=== PATIENT | male | born 1975 | race Caucasian/White ===

== ENCOUNTER → 2021-01-17 | Outpatient (CLI) | payer MEDICARE, OTHER ==
[~2021-01-17] MED LIST: ACET650T61 PO; CIPR-249 PO; CIPR500T3 PO; FLOM0.4C39 PO; HYDR-3713 PO; INSUHUMDS SC; KETO10TAB PO; METF500T13 PO; PEPC1TAB5 PO; REGL5TAB2; TOUJ1.2I SC; TRUL10IN SC; ZOFR4TAB16 PO
== END ==
LOC: M LABSMTC 10:25
PROVIDERS: ATTEND Anesthesiology
DX: Z01.812 Encounter for preprocedural laboratory examination (principal)

== ENCOUNTER 2021-01-22 06:15 | Day surgery (SDC) | payer OTHER ==
[~2021-01-22] VITALS: Ht 177.8 cm; Wt 97.1 kg
[~2021-01-22 06:15] MED LIST changes: -HYDR-3713 PO; +LR 1,000 ML IV ONE
[2021-01-22] MEDS ORDERED: MIDAZOLAM INJ 2MG/2ML VIAL (J2250 PER 1MG) As Ordered ONE (07:01)
[2021-01-22] MEDS ORDERED: HYDROmorphone HCL 2 MG/ML 1ML VIAL (J1170) As Ordered ONE (07:02)
[2021-01-22] MEDS ORDERED: ePHEDrine SULFATE 25 MG/5 ML(5MG/ML) SYRINGE As Ordered ONE (07:02)
[2021-01-22] MEDS ORDERED: PHENYLephrine 500MCG 5ML (100MCG/ML) SYRINGE As Ordered ONE (07:02)
[2021-01-22] MEDS ORDERED: fentaNYL 250 MCG/5 ML INJECTION (J3010) As Ordered ONE (07:02)
[2021-01-22] MEDS ORDERED: ACETAMINOPHEN 1000MG 100ML IV BTL (OFIRMEV) (J0131 PER 10MG) As Ordered ONE (07:02)
[2021-01-22] MEDS ORDERED: LIDOCAINE 2% 100MG/5ML SDV (FOR ANES.) As Ordered ONE (07:03)
[2021-01-22] MEDS ORDERED: SUGAMMADEX SODIUM 500 MG/5 ML VIAL (BRIDION) As Ordered ONE (07:03)
[2021-01-22] MEDS ORDERED: ONDANSETRON 4MG/2ML VIAL As Ordered ONE ×2 (07:03→13:03)
[2021-01-22] MEDS ORDERED: propofoL 200 MG/20 ML VIAL As Ordered ONE (07:03)
[2021-01-22] MEDS ORDERED: dexameTHASONE 4 MG/ML 1ML VIAL (J1100 PER 1MG) As Ordered ONE (07:03)
[2021-01-22] MEDS ORDERED: ROCURONIUM BROMIDE 50 MG/5 ML VIAL As Ordered ONE ×2 (07:03→07:56)
[2021-01-22] MEDS ORDERED: BUPIVACAINE HCL 0.25% 30ML VIAL As Ordered ONE (07:07)
[2021-01-22] MEDS ORDERED: ACETAMINOPHEN TAB 650MG DOSE (2X325MG) PO PRN (13:05)
[2021-01-22] MEDS ORDERED: LR 1,000 ML IV SCH (13:05)
[2021-01-22] MEDS ORDERED: ONDANSETRON 4MG/2ML VIAL IV PRN (13:05)
[2021-01-22] MEDS ORDERED: fentaNYL 100 MCG/2 ML INJECTION (J3010) IV PRN (13:05)
[2021-01-22] MEDS ORDERED: HYDR-3713 PO (13:06)
[2021-01-22] MEDS ORDERED: NORCO, ANEXSIA 5/325MG TABLET (HYDROcodone/ACETAMINOPHEN) PO PRN (13:10)
[2021-01-22] MEDS ORDERED: IBUPROFEN 600MG TAB PO PRN (13:10)
[2021-01-22] MEDS: oxyCODONE 5MG TAB PO PRN ×2 (13:17→13:48)
[2021-01-22 15:20] VITALS: BP 128/71
--- NOTE | 2021-01-22 18:19 | RO ---
OPERATIVE NOTE DATE OF OPERATION: 01/22/2021 PREOPERATIVE DIAGNOSIS: Right lower quadrant incisional hernia. POSTOPERATIVE DIAGNOSIS: Incarcerated right lower quadrant incisional hernia with extensive adhesions. PROCEDURE PERFORMED: Robotic-assisted laparoscopic repair of a right lower quadrant incarcerated incisional hernia with mesh, and extensive lysis of adhesions. SURGEON: Simone Valdez MD REPAIRER SCREEN CRUSHER: SYLVAIN Baeza. Tavia's assistance was essential for management of the robotic instruments as well as exchanges of instruments, passage of sutures, and preparation and insertion of the mesh as well as closure of the skin incisions. ANESTHESIA: General INDICATIONS FOR THE PROCEDURE: The patient is a 45-year-old man who had undergone an open appendectomy approximately 24 years ago. He apparently had a wound infection and subsequently developed an incisional hernia. In about 1998, he underwent an open incisional hernia repair with mesh at another institution. This subsequently recurred. He was seen several years ago for a hernia at this site. He had at that time been recently diagnosed with diabetes and has been working on weight loss and has actually lost approximately 80 lb over the last three years. He now returns for repair of his recurrent incisional hernia. OPERATIVE PROCEDURE: The patient was brought to the operating room and placed on the table in a supine position. He was placed under general endotracheal anesthesia. The patient's abdomen was prepped and draped in a sterile fashion. The patient's hernia clearly did not reduce, consistent with an incarcerated hernia. 1/4% Marcaine was infiltrated at each of the trocar sites as needed. The initial entry was in the left upper quadrant. A Veress needle was inserted and after a positive hanging drop test, the abdomen was insufflated with carbon dioxide gas. An 8 mm robotic port was placed over the scope and advanced through the abdominal wall without difficulty. Initial inspection showed some minimal insufflation of some gas into the small bowel mesentery in a small area. There were extensive adhesions of bowel loops to the anterior abdominal wall in the right lower quadrant overlying the hernia. There were no other significant adhesions in the other quadrants of the abdomen. A second 8 mm port was placed in the epigastric area just left of the falciform ligament and a third port was placed in the left lower quadrant. This was initially an 8 mm port but subsequently this was converted to a 12 in order to allow passage of larger suture needles. The patient was placed into a slight Trendelenburg position. The patient cart of the da Mayur XI robot was brought into position and the endoscope arm was docked to the middle port. The endoscope was inserted and targeting took place on the area of the hernia. The additional robotic arms were docked. A cauterizing scissor and fenestrated bipolar were inserted. I then moved to the control console to proceed with the surgery. Initially an adhesiolysis was performed. There were multiple loops of small bowel overlying the right lower quadrant, anterior and lateral abdominal balbuena. As the loops were peeled away, the extent of the hernia became more apparent. A portion of the cecum and ascending colon were densely adherent up into the hernia. There were also some loops of small bowel that were adherent at the opening of the hernia. As the bowel loops were freed, it was clear that there was a piece of prior prosthetic mesh with some large bluish colored sutures in the anterior abdominal wall in the more inferior portion of the hernia. The current hernia with the entrapped bowel extended superiorly beyond the area of the mesh. Approximately two hours was spent in performing the lysis of adhesions and freeing the bowel. The fascial defect was then measured and was 5 cm superior to inferior and approximately 8 cm medial to lateral in an oval shape. Some attachments between the inner fascia and muscle layer and the more superficial layers of the abdominal wall, where there was more extensive scarring, were divided to free the inner portion of the abdominal wall for a primary closure. A small portion of the mesh which was adherent at the medial anterior aspect was excised just to eliminate this from the wound in this area. This was subsequently removed and discarded. The pressure within the abdomen was then reduced. This was reduced to 10 mmHg. The fascial defect was then closed transversely with #1 Stratafix sutures. One suture was begun laterally and one medially and these were brought together to cross slightly in the middle. While the middle portion of the defect was being closed, the intra-abdominal pressure was actually reduced to 8 mmHg. The abdomen was then reinflated to 10 mmHg. The closure appeared good. A 15 cm round Parietex patch was then selected. This was [employer] Parietex reference code [id number] and lot number [id number]. This was trimmed on two sides to create a 15 cm x 12 cm roughly elliptical mesh. This was inserted into the abdomen and placed over the sutured defect with the long axis of the mesh paralleling the sutured defect. Care was taken to place this with the nonadherent side facing the bowel. The midline of the mesh was then sutured to the underlying fascia with a running suture of 2-0 V-Loc. Additional sutures were placed to complete the suturing of the longitudinal midline and the entire periphery of the mesh and additional sutures were then placed in a chanell pattern connecting the four corners of the mesh and therefore tacking down the free areas in the more central portions of the mesh. This appeared to given an excellent placement of the mesh. The abdomen was inspected and several minor bleeding points on the adhesions were controlled. The 12 mm port was closed by placing a 2-0 Vicryl in the inner layer of the abdominal wall as the trocar was removed and then tying the suture down after the trocar was removed. The remaining instruments were then removed. The robot was undocked and with withdrawn. The abdomen was deflated. Tavia Starkey then proceeded to close the trocar sites with buried sutures of 4-0 Vicryl. Steri-Strips were applied followed by light dressings. The patient tolerated the procedure well without apparent complication. He was awakened in the operating room, extubated and moved to the recovery room in stable condition. MIRNA
== END 2021-01-22 15:20 | disposition home or self-care (01) ==
LOC: M SDC 06:15
PROVIDERS: ATTEND Surgery
DX: K43.2 Incisional hernia without obstruction or gangrene (principal); K66.0 Peritoneal adhesions (postprocedural) (postinfection); E11.9 Type 2 diabetes mellitus without complications; Z79.84 Long term (current) use of oral hypoglycemic drugs; Z79.899 Other long term (current) drug therapy
CPT/HCPCS: 49329; 49655; C1781; J0131; J1100; J1170; J2250; J2370; J2405; J3010; S2900

== ENCOUNTER 2023-02-18 16:24 | Observation (INO) | payer OTHER ==
[~2023-02-18] VITALS: Ht 177.8 cm; Wt 104.8 kg
[~2023-02-18 16:24] MED LIST changes: +HYDR-3713 PO; -LR 1,000 ML IV ONE
[2023-02-18] MEDS ORDERED: SEMA0.257 SQ (16:43)
[2023-02-18] MEDS ORDERED: FLOM0.4C39 PO ×2 (16:43→22:56)
[2023-02-18] MEDS ORDERED: IBUP-359 PO (16:43)
[2023-02-18] MEDS ORDERED: CIPR-249 PO ×2 (16:43→22:56)
[2023-02-18] MEDS ORDERED: OXYC1TAB23 PO ×2 (16:43→22:56)
[2023-02-18 17:50] LABS: BASO % 0.3 % (0.0-1.0); EOS # 0.1 10^3/uL (0.0-0.5); EOS % 0.8 % (0.0-3.0); HEMOGLOBIN 13.8 g/dl (13.5-17.5); LYMPH # 2.2 10^3/uL (1.5-5.0); LYMPH % 18.2 % (24.0-44.0); MEAN CORPUSCULAR HEMOGLOBIN 28.4 pg (27.0-33.0); MEAN CORPUSCULAR HGB CONC 32.9 g/dl (32.0-36.5); MEAN CORPUSCULAR VOLUME 86.4 fl (80.0-96.0); MONO # 1.4 10^3/uL (0.0-0.8); MONO % 11.5 % (2.0-8.0); NEUTROPHILS # 8.1 10^3/uL (1.5-8.5); NEUTROPHILS % 68.8 % (36.0-66.0); PLATELET COUNT, AUTOMATED 247 10^3/uL (150-450); RED BLOOD COUNT 4.86 10^6/uL (4.30-6.10); WHITE BLOOD COUNT 11.8 10^3/uL (4.0-10.0)
[2023-02-18 18:13] LABS: BLOOD UREA NITROGEN 16 MG/DL (9-23); CALCIUM LEVEL 9.3 MG/DL (8.5-10.1); CARBON DIOXIDE LEVEL 26 MMOL/L (20-31); CHLORIDE LEVEL 103 MMOL/L (98-107); CREATININE FOR GFR 1.25 MG/DL (0.70-1.30); GLOMERULAR FILTRATION RATE > 60.0 (>60); GLUCOSE, FASTING 129 MG/DL (60-100); SODIUM LEVEL 139 MMOL/L (136-145)
[2023-02-18] MEDS ORDERED: NS 1,000 ML IV ONE (19:00)
[2023-02-18] MEDS ORDERED: ONDANSETRON 4MG 2ML VIAL IV ONE (19:00)
[2023-02-18] MEDS ORDERED: KETOROLAC 30 MG/ML 1ML VIAL IV ONE (19:00)
[2023-02-18] MEDS ORDERED: SEMA0.257 SC (22:56)
[2023-02-18] MEDS ORDERED: IBUP1TAB7 PO (22:56)
[2023-02-18] MEDS ORDERED: HOME MED LIST COMPLETE! XX SCH (23:00)
[2023-02-18 23:27] VITALS: BP 131/77; TEMP 97.6; O2SAT 99
[2023-02-19] MEDS ORDERED: KETOROLAC 30 MG/ML 1ML VIAL IV PRN
[2023-02-19] MEDS ORDERED: GLUCAGON INJ 1MG VIAL SC PRN
[2023-02-19] MEDS ORDERED: DEXTROSE 50% 50ML SYRINGE IV PRN
[2023-02-19] MEDS ORDERED: GLUCOSE 4GM CHEW TABLET PO PRN
[2023-02-19] MEDS: LR 1,000 ML IV SCH ×2 (00:35→10:07)
[2023-02-19] MEDS: INSULIN LISPRO (NovoLOG) PER UNIT SC SCH ×3 (05:25→12:04)
[2023-02-19 06:00] VITALS: BP 138/77; TEMP 98.2; O2SAT 100
[2023-02-19] MEDS ORDERED: ISOVUE-M 300 61% 15ML VIAL As Ordered ONE (07:18)
[2023-02-19] MEDS ORDERED: LIDOCAINE 2% 5ML JELLY UROJET As Ordered ONE (07:25)
[2023-02-19] MEDS ORDERED: fentaNYL 100 MCG/2 ML INJECTION IV PRN ×2 (07:25→08:30)
[2023-02-19] MEDS ORDERED: ONDANSETRON 4MG 2ML VIAL IV PRN ×3 (07:25→08:30)
[2023-02-19] MEDS ORDERED: HYDROMORPHONE HCL 0.5 MG/ 0.5 ML SYRINGE IV PRN ×3 (07:25→08:30)
[2023-02-19] MEDS ORDERED: MEPERIDINE 25 MG/ML 1ML VIAL IV PRN ×2 (07:25→08:30)
[2023-02-19] MEDS ORDERED: oxyCODONE 5MG TAB PO PRN ×2 (07:25→08:30)
[2023-02-19] MEDS ORDERED: ceFAZolin 2 GM/D5W 50 ML IV BAG As Ordered ONE (07:26)
[2023-02-19] MEDS ORDERED: fentaNYL 100 MCG/2 ML INJECTION As Ordered ONE (07:41)
[2023-02-19] MEDS ORDERED: propofoL 200 MG/20 ML VIAL As Ordered ONE ×2 (07:41→07:48)
[2023-02-19] MEDS ORDERED: MIDAZOLAM INJ 2MG/2ML VIAL As Ordered ONE (07:41)
[2023-02-19] MEDS ORDERED: ACETAMINOPHEN 1000MG 100ML IV BAG As Ordered ONE (07:47)
[2023-02-19] MEDS ORDERED: ceFAZolin SOD 2 GM in IV 1 EA IV ONE (08:00)
[2023-02-19 09:00] LABS: APPEARANCE, URINE TURBID (CLEAR); BACTERIA, URINE AUTO 1+ (NEGATIVE); BILIRUBIN, URINE AUTO NEGATIVE (NEGATIVE); BLOOD, URINE BLOOD 3+ (NEGATIVE); COLOR, URINE AMBER (YELLOW); GLUCOSE, URINE (UA) AUTO NEGATIVE (NEGATIVE); KETONE, URINE AUTO NEGATIVE (NEGATIVE); LEUKOCYTE ESTERASE, URINE AUTO 3+ (NEGATIVE); MUCUS, URINE SMALL (NEGATIVE); NITRITE, URINE AUTO NEGATIVE (NEGATIVE); PROTEIN, URINE AUTO 2+ mg/dL (NEGATIVE); RBC, URINE AUTO 69 /HPF (0-3); SPECIFIC GRAVITY URINE AUTO 1.011 (1.002-1.035); SQUAMOUS EPITHELIAL CELL UR AU 0 /HPF (0-6); UROBILINOGEN, URINE AUTO 0.2 mg/dL (0.0-2.0); WBC, URINE AUTO TNTC /HPF (0-3)
[2023-02-19] MEDS ORDERED: TAMSULOSIN 0.4 MG CAP PO SCH (09:00)
[2023-02-19 09:15] VITALS: BP 134/66; TEMP 97.5; O2SAT 98
[2023-02-19 09:45] VITALS: BP 131/73; TEMP 97.7; O2SAT 99
[2023-02-19 09:56] LABS: BLOOD UREA NITROGEN 17 MG/DL (9-23); CALCIUM LEVEL 8.4 MG/DL (8.5-10.1); CARBON DIOXIDE LEVEL 24 MMOL/L (20-31); CHLORIDE LEVEL 109 MMOL/L (98-107); CREATININE FOR GFR 1.12 MG/DL (0.70-1.30); GLOMERULAR FILTRATION RATE > 60.0 (>60); GLUCOSE, FASTING 144 MG/DL (60-100); POTASSIUM SERUM 4.1 MMOL/L (3.5-5.1); SODIUM LEVEL 141 MMOL/L (136-145)
[2023-02-19] MEDS ORDERED: PROBCAP14 PO (11:32)
[2023-02-19] MEDS ORDERED: CEFD300C41 PO (11:32)
[2023-02-25] MEDS ORDERED: RISATAB3 PO (14:03)
== END 2023-02-19 13:10 | disposition home or self-care (01) ==
LOC: M ED 16:24 → M ED INP 16:25 → ENRESERV 22:48 → M MS4PR 23:02
PROVIDERS: ADMIT Internal Medicine; ATTEND Internal Medicine
DX: N20.1 Calculus of ureter (principal); Q54.9 Hypospadias, unspecified; N35.911 Unspecified urethral stricture, male, meatal; E11.9 Type 2 diabetes mellitus without complications; Z79.84 Long term (current) use of oral hypoglycemic drugs; Z88.5 Allergy status to narcotic agent
CPT/HCPCS: 36415; 52332; 74176; 74420; 80048; 81001; 85025; 87088; 87186; 87635; 96361; 96374; 96375; 99283; C1769; C2617; J0131; J0690; J1885; J2250; J2405; J3010; Q9967

== ENCOUNTER → 2023-02-24 | Outpatient (CLI) | payer OTHER ==
[~2023-02-24] MED LIST changes: +CEFD300C41 PO; +IBUP-359 PO; +IBUP1TAB7 PO; +OXYC1TAB23 PO; +PROBCAP14 PO; +RISATAB3 PO; +SEMA0.257 SC; +SEMA0.257 SQ
[2023-02-24 14:44] LABS: HEMATOCRIT 40.5 % (42.0-52.0); HEMOGLOBIN 13.1 g/dl (13.5-17.5); MEAN CORPUSCULAR HEMOGLOBIN 28.1 pg (27.0-33.0); MEAN CORPUSCULAR HGB CONC 32.3 g/dl (32.0-36.5); MEAN CORPUSCULAR VOLUME 86.7 fl (80.0-96.0); PLATELET COUNT, AUTOMATED 367 10^3/uL (150-450); RED BLOOD COUNT 4.67 10^6/uL (4.30-6.10)
[2023-02-24 15:05] LABS: BLOOD UREA NITROGEN 13 MG/DL (9-23); CALCIUM LEVEL 9.1 MG/DL (8.5-10.1); CARBON DIOXIDE LEVEL 28 MMOL/L (20-31); CHLORIDE LEVEL 106 MMOL/L (98-107); CREATININE FOR GFR 0.89 MG/DL (0.70-1.30); GLOMERULAR FILTRATION RATE > 60.0 (>60); GLUCOSE, FASTING 139 MG/DL (60-100); POTASSIUM SERUM 4.1 MMOL/L (3.5-5.1); SODIUM LEVEL 141 MMOL/L (136-145)
== END ==
LOC: M LAB 14:21
PROVIDERS: ATTEND Urology
DX: Z01.818 Encounter for other preprocedural examination (principal); N20.0 Calculus of kidney

== ENCOUNTER 2023-02-27 10:52 | Day surgery (SDC) | payer OTHER ==
[~2023-02-27] VITALS: Ht 177.8 cm; Wt 105.7 kg
[~2023-02-27 10:52] MED LIST changes: +ceFAZolin SOD 2 GM in IV 1 EA IV ONE
[2023-02-27] MEDS ORDERED: LR 1,000 ML IV SCH ×2 (11:00→14:30)
[2023-02-27] MEDS ORDERED: MIDAZOLAM INJ 2MG/2ML VIAL As Ordered ONE (12:42)
[2023-02-27] MEDS ORDERED: fentaNYL 100 MCG/2 ML INJECTION As Ordered ONE (12:42)
[2023-02-27] MEDS ORDERED: KETOROLAC 60MG 2ML VIAL As Ordered ONE (12:43)
[2023-02-27] MEDS ORDERED: ONDANSETRON 4MG 2ML VIAL As Ordered ONE (12:43)
[2023-02-27] MEDS ORDERED: LIDOCAINE 2% 100MG/5ML SDV (FOR ANES.) As Ordered ONE (12:43)
[2023-02-27] MEDS ORDERED: ISOVUE-300 61% 100ML VIAL As Ordered ONE (13:06)
[2023-02-27] MEDS ORDERED: HYDROMORPHONE HCL 0.5 MG/ 0.5 ML SYRINGE IV PRN (14:30)
[2023-02-27] MEDS ORDERED: fentaNYL 100 MCG/2 ML INJECTION IV PRN (14:30)
[2023-02-27] MEDS ORDERED: ONDANSETRON 4MG 2ML VIAL IV PRN (14:30)
[2023-02-27] MEDS ORDERED: oxyCODONE 5MG TAB PO PRN (14:30)
[2023-02-27 15:28] VITALS: BP 133/85; TEMP 97.9; O2SAT 100
== END 2023-02-27 15:36 | disposition home or self-care (01) ==
LOC: M SDC 10:52
PROVIDERS: ATTEND Urology
DX: N13.2 Hydronephrosis with renal and ureteral calculous obstruction (principal); Z88.5 Allergy status to narcotic agent; E11.9 Type 2 diabetes mellitus without complications; Z79.84 Long term (current) use of oral hypoglycemic drugs; Z79.899 Other long term (current) drug therapy
CPT/HCPCS: 52356; 74420; 82365; C1769; C1894; C2617; J0690; J1100; J1885; J2250; J2405; J3010; Q9967

== ENCOUNTER 2023-08-07 15:29 | Emergency (ER) | payer OTHER ==
[~2023-08-07] VITALS: Ht 175.3 cm; Wt 106.8 kg
[~2023-08-07 15:29] MED LIST changes: +CEFD1CAP9 PO; -CEFD300C41 PO; -ceFAZolin SOD 2 GM in IV 1 EA IV ONE
[2023-08-07 17:27] LABS: BASO % 0.2 % (0.0-1.0); HEMATOCRIT 43.5 % (42.0-52.0); HEMOGLOBIN 14.6 g/dl (13.5-17.5); LYMPH # 0.7 10^3/uL (1.5-5.0); LYMPH % 4.4 % (24.0-44.0); MEAN CORPUSCULAR HEMOGLOBIN 28.1 pg (27.0-33.0); MEAN CORPUSCULAR HGB CONC 33.6 g/dl (32.0-36.5); MEAN CORPUSCULAR VOLUME 83.7 fl (80.0-96.0); MONO # 0.9 10^3/uL (0.0-0.8); MONO % 5.8 % (2.0-8.0); NEUTROPHILS # 13.7 10^3/uL (1.5-8.5); NEUTROPHILS % 88.6 % (36.0-66.0); PLATELET COUNT, AUTOMATED 330 10^3/uL (150-450); WHITE BLOOD COUNT 15.4 10^3/uL (4.0-10.0)
[2023-08-07 17:47] LABS: LIPASE 23 U/L (12-53)
[2023-08-07 18:03] LABS: ALBUMIN 4.4 G/DL (3.2-5.2); ALKALINE PHOSPHATASE 102 U/L (46-116); ALT/SGPT 45 U/L (7.0-40); AST/SGOT 23 U/L (<34); BILIRUBIN,DIRECT 0.4 MG/DL (<0.4); BLOOD UREA NITROGEN 18 MG/DL (9-23); CALCIUM LEVEL 9.4 MG/DL (8.5-10.1); CARBON DIOXIDE LEVEL 23 MMOL/L (20-31); CHLORIDE LEVEL 99 MMOL/L (98-107); CREATININE FOR GFR 1.16 MG/DL (0.70-1.30); GLOMERULAR FILTRATION RATE > 60.0 (>60); GLUCOSE, FASTING 412 MG/DL (60-100); POTASSIUM SERUM 4.6 MMOL/L (3.5-5.1); SODIUM LEVEL 133 MMOL/L (136-145); TOTAL PROTEIN 7.4 G/DL (5.7-8.2)
[2023-08-07 18:34] LABS: VENOUS BASE EXCESS -3.4 (-2.0-2.0); VENOUS O2 SATURATION 68.2 % (60.0-80.0); VENOUS PARTIAL PRESSURE CO2 40.9 mmHg (38.0-50.0); VENOUS PARTIAL PRESSURE O2 32.9 mmHg (30.0-50.0); VENOUS PH 7.349 UNITS (7.330-7.430); VENOUS TOTAL CO2 23.3 MMOL/L (24.0-28.0)
[2023-08-07 18:55] LABS: HEMOGLOBIN A1c 11.2 % (4.0-6.0)
[2023-08-07] MEDS: ONDANSETRON 4MG 2ML VIAL IV ONE (18:58)
[2023-08-07] MEDS: NS 1,000 ML IV ONE (18:59)
[2023-08-07 19:12] LABS: RSV AMPLIFICATION NEGATIVE (NEGATIVE)
[2023-08-07] MEDS ORDERED: HumuLIN R (REGULAR) INSULIN (NovoLIN R) **100U/ML** PER UNIT IV ONE (19:35)
[2023-08-07] MEDS: HumuLIN R (REGULAR) INSULIN (NovoLIN R) **100U/ML** PER UNIT IV ONE (20:13)
[2023-08-07] MEDS: KETOROLAC 30 MG/ML 1ML VIAL IV ONE (20:19)
[2023-08-07] MEDS ORDERED: IBUP80TA PO (20:54)
[2023-08-07] MEDS ORDERED: CIPR-249 PO (20:54)
[2023-08-07] MEDS ORDERED: FLOM0.4C39 PO (20:54)
[2023-08-07 21:11] VITALS: BP 103/55; TEMP 99.2; O2SAT 98
== END 2023-08-07 21:24 | disposition home or self-care (01) ==
LOC: M ED 15:29
DX: U07.1 COVID-19 (principal); N10 Acute pyelonephritis; N20.1 Calculus of ureter; E11.9 Type 2 diabetes mellitus without complications; F10.10 Alcohol abuse, uncomplicated; Z87.442 Personal history of urinary calculi; Z79.84 Long term (current) use of oral hypoglycemic drugs; Z88.5 Allergy status to narcotic agent; Z79.2 Long term (current) use of antibiotics; Z79.1 Long term (current) use of non-steroidal anti-inflammatories (NSAID); Z79.899 Other long term (current) drug therapy
CPT/HCPCS: 74176; 80048; 80076; 81001; 82803; 83036; 83605; 83690; 85025; 87040; 87086; 87631; 96361; 96374; 96375; 99284; J1815; J1885; J2405

== ENCOUNTER → 2023-08-11 | Outpatient (REF) | payer OTHER ==
[~2023-08-11] MED LIST changes: +IBUP80TA PO
== END ==
LOC: M SMT 17:06
PROVIDERS: ATTEND Nurse Practitioner Family
DX: N20.0 Calculus of kidney (principal)

== ENCOUNTER → 2023-08-20 | Outpatient (CLI) | payer OTHER | LOC: M RAD 15:48 | PROVIDERS: ATTEND Nurse Practitioner Family | DX: N20.0 Calculus of kidney (principal) ==

== ENCOUNTER → 2023-09-29 | Outpatient (CLI) | payer BC, SELFPAY ==
[~2023-09-29] MED LIST changes: +METF10004 PO; +TAMS1CAP17 PO
[2023-09-29 12:31] LABS: HEMATOCRIT 42.3 % (42.0-52.0); HEMOGLOBIN 14.3 g/dl (13.5-17.5); MEAN CORPUSCULAR HEMOGLOBIN 28.3 pg (27.0-33.0); MEAN CORPUSCULAR HGB CONC 33.8 g/dl (32.0-36.5); MEAN CORPUSCULAR VOLUME 83.6 fl (80.0-96.0); PLATELET COUNT, AUTOMATED 281 10^3/uL (150-450); RED BLOOD COUNT 5.06 10^6/uL (4.30-6.10); WHITE BLOOD COUNT 6.4 10^3/uL (4.0-10.0)
[2023-09-29 12:40] LABS: APPEARANCE, URINE CLEAR (CLEAR); BACTERIA, URINE AUTO NEGATIVE (NEGATIVE); BILIRUBIN, URINE AUTO NEGATIVE (NEGATIVE); BLOOD, URINE BLOOD NEGATIVE (NEGATIVE); COLOR, URINE STRAW (YELLOW); GLUCOSE, URINE (UA) AUTO 3+ mg/dL (NEGATIVE); KETONE, URINE AUTO TRACE mg/dL (NEGATIVE); LEUKOCYTE ESTERASE, URINE AUTO 1+ (NEGATIVE); NITRITE, URINE AUTO NEGATIVE (NEGATIVE); PROTEIN, URINE AUTO NEGATIVE (NEGATIVE); RBC, URINE AUTO 1 /HPF (0-3); SPECIFIC GRAVITY URINE AUTO 1.021 (1.002-1.035); SQUAMOUS EPITHELIAL CELL UR AU 0 /HPF (0-6); UROBILINOGEN, URINE AUTO 0.2 mg/dL (0.0-2.0); WBC, URINE AUTO 17 /HPF (0-3)
[2023-09-29 13:47] LABS: BLOOD UREA NITROGEN 11 MG/DL (9-23); CARBON DIOXIDE LEVEL 26 MMOL/L (20-31); CHLORIDE LEVEL 100 MMOL/L (98-107); CREATININE FOR GFR 0.65 MG/DL (0.70-1.30); GLOMERULAR FILTRATION RATE > 60.0 (>60); GLUCOSE, FASTING 427 MG/DL (60-100); SODIUM LEVEL 134 MMOL/L (136-145)
== END ==
LOC: M RAD 11:01
PROVIDERS: ATTEND Nurse Practitioner Family
DX: Z01.818 Encounter for other preprocedural examination (principal)

== ENCOUNTER → 2023-10-20 | Outpatient (CLI) | payer BC | LOC: M RAD 16:20 | PROVIDERS: ATTEND Nurse Practitioner Family | DX: N20.0 Calculus of kidney (principal) ==

== ENCOUNTER 2024-03-07 11:07 | Emergency (ER) | payer BC ==
[~2024-03-07] VITALS: Ht 175.3 cm; Wt 98.6 kg
[2024-03-07 11:07] VITALS: BP 162/74; TEMP 98.7; O2SAT 100
[2024-03-07] MEDS ORDERED: SEMA1PEN2 (11:53)
[2024-03-07] MEDS ORDERED: CEFD1CAP9 PO (14:06)
== END 2024-03-07 14:20 | disposition home or self-care (01) ==
LOC: M ED 11:07
DX: N39.0 Urinary tract infection, site not specified (principal); R10.32 Left lower quadrant pain; E11.9 Type 2 diabetes mellitus without complications; Z88.5 Allergy status to narcotic agent; Z87.442 Personal history of urinary calculi; Z90.89 Acquired absence of other organs; Z79.2 Long term (current) use of antibiotics; Z79.4 Long term (current) use of insulin; Z79.899 Other long term (current) drug therapy

== ENCOUNTER 2024-05-17 12:35 | Inpatient (IN) | payer BC ==
[~2024-05-17] VITALS: Ht 175.3 cm; Wt 98.6 kg
[~2024-05-17 12:35] MED LIST changes: +SEMA1PEN2 INJ
[2024-05-17] MEDS ORDERED: IBUP200T46 PO (12:41)
[2024-05-17 13:19] LABS: BASO % 0.2 % (0.0-1.0); EOS % 0.3 % (0.0-3.0); HEMATOCRIT 44.3 % (42.0-52.0); HEMOGLOBIN 14.4 g/dl (13.5-17.5); LYMPH # 2.5 10^3/uL (1.5-5.0); LYMPH % 19.7 % (24.0-44.0); MEAN CORPUSCULAR HEMOGLOBIN 27.8 pg (27.0-33.0); MEAN CORPUSCULAR HGB CONC 32.5 g/dl (32.0-36.5); MEAN CORPUSCULAR VOLUME 85.5 fl (80.0-96.0); MONO # 0.9 10^3/uL (0.0-0.8); MONO % 6.9 % (2.0-8.0); NEUTROPHILS # 9.1 10^3/uL (1.5-8.5); NEUTROPHILS % 72.7 % (36.0-66.0); PLATELET COUNT, AUTOMATED 459 10^3/uL (150-450); RED BLOOD COUNT 5.18 10^6/uL (4.30-6.10); WHITE BLOOD COUNT 12.5 10^3/uL (4.0-10.0)
[2024-05-17] MEDS: KETOROLAC 30 MG/ML 1ML VIAL IV ONE (13:32)
[2024-05-17] MEDS: ONDANSETRON 4MG 2ML VIAL IV ONE ×2 (13:32→17:01)
[2024-05-17 13:53] LABS: ALBUMIN 4.2 G/DL (3.2-5.2); BILIRUBIN,DIRECT 0.2 MG/DL (<0.4); BILIRUBIN,TOTAL 0.6 MG/DL (0.3-1.2); TOTAL PROTEIN 8.1 G/DL (5.7-8.2)
[2024-05-17] MEDS: HYDROMORPHONE HCL 0.5 MG/ 0.5 ML SYRINGE IV PRN (14:41)
[2024-05-17] MEDS: CIPROFLOXACIN 400 MG in IV 1 EA IV ONE (16:11)
[2024-05-17] MEDS ORDERED: HOME MED LIST COMPLETE! XX SCH (16:20)
[2024-05-17] MEDS: NS 1,000 ML IV SCH (16:21)
[2024-05-17] MEDS: ACETAMINOPHEN *IV* 1,000 MG in IV 1 EA IV ONE (17:30)
[2024-05-17] MEDS: METOCLOPRAMIDE INJ 10MG/2ML VIAL IV ONE (17:33)
[2024-05-17] MEDS: SCOPOLAMINE 1MG TRANSDERMAL PATCH TOP SCH (17:42)
[2024-05-17] MEDS ORDERED: GLUCAGON INJ 1MG VIAL SC PRN (17:50)
[2024-05-17] MEDS ORDERED: DEXTROSE 50% 50ML SYRINGE IV PRN (17:50)
[2024-05-17] MEDS: LR 1,000 ML IV SCH (17:50)
[2024-05-17] MEDS ORDERED: HYDROMORPHONE HCL 0.5 MG/ 0.5 ML SYRINGE IV SCH ×2 (17:50)
[2024-05-17] MEDS ORDERED: GLUCOSE 4 GM CHEW PO PRN (17:50)
[2024-05-17] MEDS ORDERED: SCOPOLAMINE 1MG TRANSDERMAL PATCH TOP ONE (17:50)
[2024-05-17] MEDS ORDERED: HYDROMORPHONE HCL 0.5 MG/ 0.5 ML SYRINGE IV PRN (18:30)
[2024-05-17] MEDS: KETOROLAC 30 MG/ML 1ML VIAL IV PRN (19:58)
[2024-05-17] MEDS: INSULIN LISPRO (NovoLOG) PER UNIT SC SCH (21:00)
[2024-05-18] VITALS (9 sets, daily range): BP systolic 96–149; BP diastolic 53–80; TEMP 96.5–98.2; O2SAT 93–99
[2024-05-18] MEDS: ACETAMINOPHEN 500 MG TAB PO SCH (00:20)
[2024-05-18] MEDS: ONDANSETRON 4MG 2ML VIAL IV PRN (00:22)
[2024-05-18] MEDS: KETOROLAC 30 MG/ML 1ML VIAL IV SCH (02:02)
[2024-05-18] MEDS: CIPROFLOXACIN 400 MG in IV 1 EA IV SCH (04:28)
[2024-05-18 06:31] LABS: HEMATOCRIT 38.7 % (42.0-52.0); HEMOGLOBIN 12.5 g/dl (13.5-17.5); MEAN CORPUSCULAR HGB CONC 32.3 g/dl (32.0-36.5); MEAN CORPUSCULAR VOLUME 86.6 fl (80.0-96.0); RED BLOOD COUNT 4.47 10^6/uL (4.30-6.10); WHITE BLOOD COUNT 18.1 10^3/uL (4.0-10.0)
[2024-05-18 06:32] LABS: PLATELET COUNT, AUTOMATED 319 10^3/uL (150-450)
[2024-05-18 06:44] LABS: ALKALINE PHOSPHATASE 64 U/L (40-129); ALT/SGPT 9 U/L (7.0-40); AST/SGOT < 8 U/L (<34); BILIRUBIN,TOTAL 0.8 MG/DL (0.3-1.2); BLOOD UREA NITROGEN 17 MG/DL (9-23); CALCIUM LEVEL 9.1 MG/DL (8.5-10.1); CARBON DIOXIDE LEVEL 26 MMOL/L (20-31); CHLORIDE LEVEL 106 MMOL/L (98-107); CREATININE FOR GFR 1.53 MG/DL (0.70-1.30); GLOMERULAR FILTRATION RATE 52.4 (>60); GLUCOSE, FASTING 164 MG/DL (60-100); POTASSIUM SERUM 4.2 MMOL/L (3.5-5.1); SODIUM LEVEL 140 MMOL/L (136-145); TOTAL PROTEIN 6.2 G/DL (5.7-8.2)
[2024-05-18] MEDS: INSULIN LISPRO (NovoLOG) PER UNIT SC SCH (07:30)
[2024-05-18] MEDS: HYDROMORPHONE HCL 0.5 MG/ 0.5 ML SYRINGE IV PRN (08:40)
[2024-05-18] MEDS: LR 1,000 ML IV SCH (12:34)
[2024-05-18] MEDS ORDERED: fentaNYL 100 MCG/2 ML INJECTION As Ordered ONE (16:09)
[2024-05-18] MEDS ORDERED: ACETAMINOPHEN 1000MG/100ML IV BAG As Ordered ONE (16:09)
[2024-05-18] MEDS ORDERED: propofoL 200 MG/20 ML VIAL As Ordered ONE (16:09)
[2024-05-18] MEDS ORDERED: MIDAZOLAM INJ 2MG/2ML VIAL As Ordered ONE (16:09)
[2024-05-18] MEDS ORDERED: LIDOCAINE 2% 100MG/5ML SDV (FOR ANES.) As Ordered ONE (16:12)
[2024-05-18] MEDS: LIDOCAINE 2% 5ML JELLY UROJET As Ordered ONE (16:35)
[2024-05-18] MEDS: ISOVUE-300 61% 100ML VIAL As Ordered ONE (16:35)
[2024-05-18] MEDS: LR 500 ML IV ONE (22:25)
[2024-05-19] VITALS: BP 113/64; TEMP 96.7; O2SAT 99
[2024-05-19 02:25] VITALS: BP 104/59; TEMP 96.7; O2SAT 96
[2024-05-19 06:44] VITALS: BP 112/69; TEMP 97.2; O2SAT 97
[2024-05-19 07:05] LABS: HEMATOCRIT 32.8 % (42.0-52.0); HEMOGLOBIN 10.7 g/dl (13.5-17.5); MEAN CORPUSCULAR HEMOGLOBIN 27.8 pg (27.0-33.0); MEAN CORPUSCULAR HGB CONC 32.6 g/dl (32.0-36.5); MEAN CORPUSCULAR VOLUME 85.2 fl (80.0-96.0); PLATELET COUNT, AUTOMATED 289 10^3/uL (150-450); RED BLOOD COUNT 3.85 10^6/uL (4.30-6.10)
[2024-05-19 07:32] LABS: BLOOD UREA NITROGEN 22 MG/DL (9-23); CALCIUM LEVEL 8.6 MG/DL (8.5-10.1); CARBON DIOXIDE LEVEL 27 MMOL/L (20-31); CHLORIDE LEVEL 108 MMOL/L (98-107); CREATININE FOR GFR 1.07 MG/DL (0.70-1.30); GLOMERULAR FILTRATION RATE > 60.0 (>60); GLUCOSE, FASTING 254 MG/DL (60-100); POTASSIUM SERUM 4.3 MMOL/L (3.5-5.1); SODIUM LEVEL 140 MMOL/L (136-145)
[2024-05-19] MEDS: ceFAZolin SOD 2 GM in IV 1 EA IV SCH (10:03)
[2024-05-19] MEDS ORDERED: ACETAMINOPHEN 500 MG TAB PO PRN (11:30)
[2024-05-19 12:00] VITALS: BP 129/71; TEMP 97.9; O2SAT 96
[2024-05-19 20:09] VITALS: BP 130/82; TEMP 98.8; O2SAT 98
[2024-05-19] MEDS: MIRALAX *UNIT DOSE* 17GM PACKET PO SCH (20:58)
[2024-05-20 04:20] VITALS: BP 126/81; TEMP 98.1; O2SAT 98
[2024-05-20 06:12] LABS: HEMOGLOBIN 10.8 g/dl (13.5-17.5); MEAN CORPUSCULAR HEMOGLOBIN 27.8 pg (27.0-33.0); MEAN CORPUSCULAR HGB CONC 32.7 g/dl (32.0-36.5); MEAN CORPUSCULAR VOLUME 84.8 fl (80.0-96.0); PLATELET COUNT, AUTOMATED 311 10^3/uL (150-450); RED BLOOD COUNT 3.89 10^6/uL (4.30-6.10); WHITE BLOOD COUNT 12.4 10^3/uL (4.0-10.0)
[2024-05-20 06:40] LABS: BLOOD UREA NITROGEN 15 MG/DL (9-23); CALCIUM LEVEL 8.7 MG/DL (8.5-10.1); CARBON DIOXIDE LEVEL 26 MMOL/L (20-31); CHLORIDE LEVEL 109 MMOL/L (98-107); CREATININE FOR GFR 0.98 MG/DL (0.70-1.30); GLOMERULAR FILTRATION RATE > 60.0 (>60); GLUCOSE, FASTING 145 MG/DL (60-100); POTASSIUM SERUM 3.9 MMOL/L (3.5-5.1); SODIUM LEVEL 143 MMOL/L (136-145)
[2024-05-20] MEDS: ENOXAPARIN 40MG/0.4ML SYRINGE (J1650 PER 10MG) SC SCH (08:24)
[2024-05-20] MEDS ORDERED: CEFD1CAP9 PO (11:17)
== END 2024-05-20 12:35 | disposition home or self-care (01) | DRG 465 ==
LOC: M ED 12:35 → M ED INP 12:36 → M MS5PR 05-18 00:52 → OBSVTOIN 05-19 15:19
PROVIDERS: ADMIT Student in an Organized Health Care Education/Training Program; ATTEND Student in an Organized Health Care Education/Training Program
PROC: 0T778DZ Dilation of Left Ureter with Intraluminal Device, Via Natural or Artificial Opening Endoscopic (ICD-10-PCS; principal; 2024-05-18 16:00)
DX: N13.2 Hydronephrosis with renal and ureteral calculous obstruction (principal); N17.9 Acute kidney failure, unspecified; R78.81 Bacteremia; E11.9 Type 2 diabetes mellitus without complications; N39.0 Urinary tract infection, site not specified; Q54.8 Other hypospadias; Z88.5 Allergy status to narcotic agent; Z79.899 Other long term (current) drug therapy

== ENCOUNTER → 2024-07-01 | Outpatient (CLI) | payer BC ==
[~2024-07-01] MED LIST changes: +IBUP200T46 PO
[2024-07-01 18:01] LABS: HEMATOCRIT 42.7 % (42.0-52.0); HEMOGLOBIN 14.2 g/dl (13.5-17.5); MEAN CORPUSCULAR HGB CONC 33.3 g/dl (32.0-36.5); MEAN CORPUSCULAR VOLUME 84.1 fl (80.0-96.0); PLATELET COUNT, AUTOMATED 336 10^3/uL (150-450); RED BLOOD COUNT 5.08 10^6/uL (4.30-6.10); WHITE BLOOD COUNT 8.2 10^3/uL (4.0-10.0)
[2024-07-01 18:20] LABS: BLOOD UREA NITROGEN 13 MG/DL (9-23); CALCIUM LEVEL 9.7 MG/DL (8.5-10.1); CARBON DIOXIDE LEVEL 28 MMOL/L (20-31); CHLORIDE LEVEL 111 MMOL/L (98-107); CREATININE FOR GFR 0.77 MG/DL (0.70-1.30); GLOMERULAR FILTRATION RATE > 60.0 (>60); GLUCOSE, FASTING 119 MG/DL (60-100); POTASSIUM SERUM 4.1 MMOL/L (3.5-5.1); SODIUM LEVEL 143 MMOL/L (136-145)
== END ==
LOC: M RAD 16:41
PROVIDERS: ATTEND Physician Assistant
DX: Z01.818 Encounter for other preprocedural examination (principal)

== ENCOUNTER → 2024-07-11 | Outpatient (REF) | payer BC ==
[2024-07-11 11:56] LABS: AMORPHOUS SEDIMENT SMALL (NEGATIVE); APPEARANCE, URINE CLOUDY (CLEAR); BACTERIA, URINE AUTO 1+ (NEGATIVE); BILIRUBIN, URINE AUTO NEGATIVE (NEGATIVE); BLOOD, URINE BLOOD 1+ (NEGATIVE); COLOR, URINE YELLOW (YELLOW); GLUCOSE, URINE (UA) AUTO NEGATIVE (NEGATIVE); KETONE, URINE AUTO NEGATIVE (NEGATIVE); LEUKOCYTE ESTERASE, URINE AUTO 3+ (NEGATIVE); MUCUS, URINE SMALL (NEGATIVE); NITRITE, URINE AUTO NEGATIVE (NEGATIVE); PROTEIN, URINE AUTO 1+ mg/dL (NEGATIVE); RBC, URINE AUTO 5 /HPF (0-3); SPECIFIC GRAVITY URINE AUTO 1.011 (1.002-1.035); SQUAMOUS EPITHELIAL CELL UR AU 1 /HPF (0-6); UROBILINOGEN, URINE AUTO 0.2 mg/dL (0.0-2.0); WBC, URINE AUTO 135 /HPF (0-3)
== END ==
LOC: M SMT 11:11
PROVIDERS: ATTEND Physician Assistant
DX: Z01.818 Encounter for other preprocedural examination (principal)

== ENCOUNTER 2024-07-21 10:21 | Day surgery (SDC) | payer BC ==
[~2024-07-21] VITALS: Ht 175.3 cm; Wt 98.4 kg
[2024-07-21] MEDS ORDERED: LR 1,000 ML IV SCH (10:55)
[2024-07-21] MEDS ORDERED: LIDOCAINE 2% 100MG/5ML SDV (FOR ANES.) As Ordered ONE (12:46)
[2024-07-21] MEDS ORDERED: propofoL 200 MG/20 ML VIAL As Ordered ONE (12:46)
[2024-07-21] MEDS ORDERED: fentaNYL 100 MCG/2 ML INJECTION As Ordered ONE (12:49)
[2024-07-21] MEDS ORDERED: MIDAZOLAM INJ 2MG/2ML VIAL As Ordered ONE (12:49)
[2024-07-21] MEDS: ceFAZolin SOD 2 GM in IV 1 EA IV ONE (13:03)
[2024-07-21] MEDS: ISOVUE-300 61% 100ML VIAL As Ordered ONE (13:28)
[2024-07-21] MEDS ORDERED: KETOROLAC 60MG 2ML VIAL As Ordered ONE (13:31)
[2024-07-21] MEDS ORDERED: ONDANSETRON 4MG 2ML VIAL As Ordered ONE (13:32)
[2024-07-21] MEDS ORDERED: NS (Normal Saline) 0.9% 1,000 ML IV SCH (14:05)
[2024-07-21] MEDS ORDERED: oxyCODONE 5MG TAB PO PRN (14:05)
[2024-07-21] MEDS ORDERED: MACR100C43 PO (14:05)
[2024-07-21] MEDS ORDERED: OXYB5TAB14 PO (14:05)
[2024-07-21] MEDS ORDERED: PYRI1TAB5 PO (14:05)
[2024-07-21] MEDS ORDERED: HYDROMORPHONE HCL 0.5 MG/ 0.5 ML SYRINGE IV PRN (14:05)
[2024-07-21] MEDS ORDERED: fentaNYL 100 MCG/2 ML INJECTION IV PRN (14:05)
[2024-07-21] MEDS: ONDANSETRON 4MG 2ML VIAL IV PRN (14:24)
[2024-07-21 15:10] VITALS: BP 141/78; TEMP 97.9; O2SAT 99
== END 2024-07-21 15:23 | disposition home or self-care (01) ==
LOC: M SDC 10:21
PROVIDERS: ATTEND Urology
DX: N20.2 Calculus of kidney with calculus of ureter (principal); E11.9 Type 2 diabetes mellitus without complications; Z79.84 Long term (current) use of oral hypoglycemic drugs; Z79.899 Other long term (current) drug therapy; Z88.5 Allergy status to narcotic agent
CPT/HCPCS: 52356; 76000; 82365; C1769; C2617; J0690; J1100; J1885; J2250; J2405; J3010; Q9967

== ENCOUNTER 2024-09-11 17:10 | Inpatient (IN) | payer BC ==
[~2024-09-11] VITALS: Ht 175.3 cm; Wt 98.6 kg
[~2024-09-11 17:10] MED LIST changes: +MACR100C43 PO; +OXYB5TAB14 PO; +PYRI1TAB5 PO
[2024-09-11] MEDS: KETOROLAC 30 MG/ML 1ML VIAL IV ONE (17:48)
[2024-09-11] MEDS: ONDANSETRON 4MG 2ML VIAL IV ONE (17:48)
[2024-09-11 18:16] LABS: BASO % 0.3 % (0.0-1.0); EOS # 0.1 10^3/uL (0.0-0.5); HEMATOCRIT 38.8 % (42.0-52.0); HEMOGLOBIN 12.9 g/dl (13.5-17.5); LYMPH # 1.1 10^3/uL (1.5-5.0); LYMPH % 10.9 % (24.0-44.0); MEAN CORPUSCULAR HEMOGLOBIN 27.3 pg (27.0-33.0); MEAN CORPUSCULAR HGB CONC 33.2 g/dl (32.0-36.5); MEAN CORPUSCULAR VOLUME 82.2 fl (80.0-96.0); MONO # 0.8 10^3/uL (0.0-0.8); MONO % 8.3 % (2.0-8.0); NEUTROPHILS # 7.6 10^3/uL (1.5-8.5); PLATELET COUNT, AUTOMATED 355 10^3/uL (150-450); RED BLOOD COUNT 4.72 10^6/uL (4.30-6.10); WHITE BLOOD COUNT 9.7 10^3/uL (4.0-10.0)
[2024-09-11 18:24] LABS: KETONE, URINE AUTO RFX 1+ mg/dL (NEGATIVE); LEUKOCYTE ESTERASE UR AUTO RFX 3+ (NEGATIVE); MUCUS, URINE RFX SMALL (NEGATIVE); NITRITE, URINE AUTO RFX NEGATIVE (NEGATIVE); RBC, URINE AUTO RFX 61 /HPF (0-3); SQUAM EPITHELIAL CELL UR AURFX 1 /HPF (0-6); WBC, URINE AUTO RFX TNTC /HPF (0-3)
[2024-09-11 18:45] LABS: ALBUMIN 3.6 G/DL (3.2-5.2); BILIRUBIN,DIRECT 0.3 MG/DL (<0.4); BILIRUBIN,TOTAL 0.8 MG/DL (0.3-1.2); TOTAL PROTEIN 6.9 G/DL (5.7-8.2)
[2024-09-11] MEDS: VANCOMYCIN HCL 1,000 MG, VIAL MATE ADAPTER 1 EACH in NS 250 ML IV ONE (23:16)
[2024-09-11] MEDS: NS (Normal Saline) 0.9% 1,000 ML IV ONE (23:50)
[2024-09-12] VITALS (12 sets, daily range): BP systolic 92–124; BP diastolic 54–67; TEMP 97.1–99.9; O2SAT 97–100
[2024-09-12] MEDS: GENTAMICIN 240 MG in D5W 50 ML IV ONE
[2024-09-12] MEDS ORDERED: ACETAMINOPHEN 325 MG TAB PO PRN (00:50)
[2024-09-12] MEDS ORDERED: GLUCAGON INJ 1MG VIAL SC PRN (00:50)
[2024-09-12] MEDS ORDERED: MAALOX 30 ML SUSP *UDC PO PRN (00:50)
[2024-09-12] MEDS ORDERED: ONDANSETRON 4MG ORAL DISINTEGRATING TAB PO PRN (00:50)
[2024-09-12] MEDS ORDERED: GLUCOSE 4 GM CHEW PO PRN (00:50)
[2024-09-12] MEDS ORDERED: DEXTROSE 50% 50ML SYRINGE IV PRN (00:50)
[2024-09-12] MEDS ORDERED: MOM 30ML SUSPENSION UDC PO PRN (00:50)
[2024-09-12] MEDS ORDERED: GENTAMICIN SULF 80MG/2ML VIAL As Ordered ONE (00:52)
[2024-09-12] MEDS ORDERED: ISOVUE-300 61% 100ML VIAL As Ordered ONE (01:01)
[2024-09-12] MEDS ORDERED: fentaNYL 100 MCG/2 ML INJECTION As Ordered ONE (01:21)
[2024-09-12] MEDS ORDERED: ACETAMINOPHEN 1000MG/100ML IV BAG As Ordered ONE (01:21)
[2024-09-12] MEDS ORDERED: ONDANSETRON 4MG 2ML VIAL As Ordered ONE (01:21)
[2024-09-12] MEDS ORDERED: LIDOCAINE 2% 100MG/5ML SDV (FOR ANES.) As Ordered ONE (01:21)
[2024-09-12] MEDS ORDERED: ROCURONIUM BROMIDE 50MG/5ML VIAL As Ordered ONE (01:21)
[2024-09-12] MEDS ORDERED: MIDAZOLAM INJ 2MG/2ML VIAL As Ordered ONE (01:21)
[2024-09-12] MEDS ORDERED: SUCCINYLCHOLINE 100MG/5ML SYRINGE As Ordered ONE (01:21)
[2024-09-12] MEDS ORDERED: METOCLOPRAMIDE INJ 10MG/2ML VIAL As Ordered ONE (01:21)
[2024-09-12] MEDS ORDERED: propofoL 200 MG/20 ML VIAL As Ordered ONE (01:21)
[2024-09-12] MEDS: INSULIN LISPRO (NovoLOG) PER UNIT SC SCH ×2 (09:32→20:06)
[2024-09-12] MEDS: cefTRIAXone SOD 2 GM in DEXTROSE 5% (D5W) ADV/MINI-BAG 50 ML IV SCH (09:33)
[2024-09-12] MEDS: DOCUSATE SODIUM 100MG CAPSULE PO SCH (09:33)
[2024-09-12] MEDS ORDERED: HOME MED LIST COMPLETE! XX SCH (10:05)
[2024-09-12 12:11] LABS: HEMATOCRIT 38.6 % (42.0-52.0); HEMOGLOBIN 12.1 g/dl (13.5-17.5); MEAN CORPUSCULAR HEMOGLOBIN 26.8 pg (27.0-33.0); MEAN CORPUSCULAR HGB CONC 31.3 g/dl (32.0-36.5); MEAN CORPUSCULAR VOLUME 85.6 fl (80.0-96.0); PLATELET COUNT, AUTOMATED 316 10^3/uL (150-450); RED BLOOD COUNT 4.51 10^6/uL (4.30-6.10); WHITE BLOOD COUNT 9.5 10^3/uL (4.0-10.0)
[2024-09-12 12:33] LABS: BLOOD UREA NITROGEN 14 MG/DL (9-23); CALCIUM LEVEL 8.4 MG/DL (8.5-10.1); CARBON DIOXIDE LEVEL 26 MMOL/L (20-31); CHLORIDE LEVEL 109 MMOL/L (98-107); CREATININE FOR GFR 0.95 MG/DL (0.70-1.30); GLOMERULAR FILTRATION RATE > 60.0 (>60); GLUCOSE, FASTING 146 MG/DL (60-100); POTASSIUM SERUM 3.8 MMOL/L (3.5-5.1); SODIUM LEVEL 143 MMOL/L (136-145)
[2024-09-13 01:03] VITALS: TEMP 98.4
[2024-09-13 04:04] VITALS: BP 102/54; TEMP 97.5; O2SAT 96
[2024-09-13 08:00] VITALS: BP 118/74; TEMP 97.5; O2SAT 98
[2024-09-13] MEDS ORDERED: CEFD1CAP9 PO (10:30)
== END 2024-09-13 12:59 | disposition home or self-care (01) | DRG 465 ==
LOC: M ED 17:10 → M ED INP 23:56 → M MS4PR 09-12 02:16
PROVIDERS: ADMIT Student in an Organized Health Care Education/Training Program; ATTEND Student in an Organized Health Care Education/Training Program
PROC: 0T778DZ Dilation of Left Ureter with Intraluminal Device, Via Natural or Artificial Opening Endoscopic (ICD-10-PCS; principal; 2024-09-12)
DX: N13.2 Hydronephrosis with renal and ureteral calculous obstruction (principal); N39.0 Urinary tract infection, site not specified; E11.9 Type 2 diabetes mellitus without complications; E66.9 Obesity, unspecified; Q54.8 Other hypospadias; Z88.5 Allergy status to narcotic agent; Z79.899 Other long term (current) drug therapy

== ENCOUNTER 2024-10-02 13:13 | Inpatient (IN) | payer BC ==
[~2024-10-02] VITALS: Ht 175.3 cm; Wt 98.6 kg
[2024-10-02] MEDS: cefTRIAXone SOD 1 GM in DEXTROSE 5% (D5W) ADV/MINI-BAG 50 ML IV ONE (14:27)
[2024-10-02] MEDS: NS (Normal Saline) 0.9% 1,000 ML IV ONE (14:27)
[2024-10-02 14:30] LABS: BASO % 0.2 % (0.0-1.0); HEMATOCRIT 37.7 % (42.0-52.0); HEMOGLOBIN 12.6 g/dl (13.5-17.5); LYMPH # 1.1 10^3/uL (1.5-5.0); LYMPH % 8.6 % (24.0-44.0); MEAN CORPUSCULAR HEMOGLOBIN 26.9 pg (27.0-33.0); MEAN CORPUSCULAR HGB CONC 33.4 g/dl (32.0-36.5); MEAN CORPUSCULAR VOLUME 80.4 fl (80.0-96.0); MONO % 7.8 % (2.0-8.0); NEUTROPHILS # 10.7 10^3/uL (1.5-8.5); NEUTROPHILS % 82.9 % (36.0-66.0); PLATELET COUNT, AUTOMATED 219 10^3/uL (150-450); RED BLOOD COUNT 4.69 10^6/uL (4.30-6.10); WHITE BLOOD COUNT 12.9 10^3/uL (4.0-10.0)
[2024-10-02] MEDS: ONDANSETRON 4MG 2ML VIAL IV ONE (14:31)
[2024-10-02 14:51] LABS: KETONE, URINE AUTO RFX 2+ mg/dL (NEGATIVE); MUCUS, URINE RFX SMALL (NEGATIVE); NITRITE, URINE AUTO RFX NEGATIVE (NEGATIVE); RBC, URINE AUTO RFX 15 /HPF (0-3); SQUAM EPITHELIAL CELL UR AURFX 1 /HPF (0-6); TRANSITIONAL EPITHELIAL AU RFX 1 /HPF
[2024-10-02 15:06] LABS: LEUKOCYTE ESTERASE UR AUTO RFX 3+ (NEGATIVE); WBC, URINE AUTO RFX TNTC /HPF (0-3)
[2024-10-02 15:08] LABS: ALBUMIN 3.4 G/DL (3.2-5.2); ALKALINE PHOSPHATASE 70 U/L (40-129); ALT/SGPT 16 U/L (7.0-40); AST/SGOT 19 U/L (<34); BILIRUBIN,DIRECT 0.3 MG/DL (<0.4); BILIRUBIN,TOTAL 0.8 MG/DL (0.3-1.2); BLOOD UREA NITROGEN 18 MG/DL (9-23); CALCIUM LEVEL 8.5 MG/DL (8.5-10.1); CARBON DIOXIDE LEVEL 22 MMOL/L (20-31); CHLORIDE LEVEL 99 MMOL/L (98-107); GLOMERULAR FILTRATION RATE > 90.0 (>60); GLUCOSE, FASTING 202 MG/DL (60-100); POTASSIUM SERUM 3.4 MMOL/L (3.5-5.1); SODIUM LEVEL 133 MMOL/L (136-145)
[2024-10-02] MEDS: KETOROLAC 30 MG/ML 1ML VIAL IV ONE (17:33)
[2024-10-02] MEDS ORDERED: ISOVUE-370 76% 100ML VIAL As Ordered ONE (17:39)
[2024-10-02] MEDS: NS 0.9% IV ONE (17:52)
[2024-10-02] MEDS: PROMETHAZINE 25MG/ML 1ML VIAL IV ONE (17:52)
[2024-10-02] MEDS: [UNRECOGNIZED DRUG - OTHER] IV ONE (17:52)
[2024-10-02] MEDS ORDERED: GLUCOSE 4 GM CHEW PO PRN (18:15)
[2024-10-02] MEDS ORDERED: GLUCAGON INJ 1MG VIAL SC PRN (18:15)
[2024-10-02] MEDS ORDERED: VANCOMYCIN HCL 1,000 MG in IV FLUID PLACE HOLDER 1 EA IV ONE (18:15)
[2024-10-02] MEDS ORDERED: DEXTROSE 50% 50ML SYRINGE IV PRN (18:15)
[2024-10-02] MEDS ORDERED: HYDROMORPHONE HCL 0.5 MG/ 0.5 ML SYRINGE IV PRN (18:30)
[2024-10-02 18:45] LABS: PROCALCITONIN 6.38 ng/ml
[2024-10-02] MEDS: VANCOMYCIN HCL 2,000 MG, VIAL MATE ADAPTER 1 EACH in NS 500 ML IV ONE (18:52)
[2024-10-02 19:03] LABS: C REACTIVE PROTEIN QUANTITATIV 27.53 MG/DL (<1.0)
[2024-10-02] MEDS: KCL 10MEQ/100ML SWI (KRUN) 10 MEQ in IV 1 EA IV SCH (19:57)
[2024-10-02] MEDS: ACETAMINOPHEN 325 MG TAB PO PRN (19:58)
[2024-10-02] MEDS: INSULIN LISPRO (NovoLOG) PER UNIT SC SCH (21:00)
[2024-10-02 21:19] VITALS: BP 108/57; TEMP 99.1; O2SAT 96
[2024-10-02] MEDS: CEFEPIME HCL 2 GM in DEXTROSE 5% (D5W) ADV/MINI-BAG 50 ML IV SCH (22:27)
[2024-10-02] MEDS ORDERED: ACET-897 PO (22:46)
[2024-10-02] MEDS ORDERED: HOME MED LIST COMPLETE! XX SCH (22:50)
[2024-10-03] VITALS (8 sets, daily range): BP systolic 106–170; BP diastolic 57–100; TEMP 98.6–102.1; O2SAT 94–99
[2024-10-03] MEDS: ONDANSETRON 4MG 2ML VIAL IV PRN (02:43)
[2024-10-03] MEDS: HYDROMORPHONE HCL 0.5 MG/ 0.5 ML SYRINGE IV PRN (02:44)
[2024-10-03] MEDS: ACETAMINOPHEN *IV* 1,000 MG in IV 1 EA IV ONE (02:45)
[2024-10-03] MEDS: VANCOMYCIN HCL 1,000 MG, VIAL MATE ADAPTER 1 EACH in NS 250 ML IV SCH (04:12)
[2024-10-03 06:11] LABS: HEMATOCRIT 32.2 % (42.0-52.0); MEAN CORPUSCULAR HGB CONC 32.6 g/dl (32.0-36.5); MEAN CORPUSCULAR VOLUME 82.8 fl (80.0-96.0); PLATELET COUNT, AUTOMATED 179 10^3/uL (150-450); RED BLOOD COUNT 3.89 10^6/uL (4.30-6.10); WHITE BLOOD COUNT 8.6 10^3/uL (4.0-10.0)
[2024-10-03 06:13] LABS: HEMOGLOBIN 10.5 g/dl (13.5-17.5)
[2024-10-03 06:23] LABS: BLOOD UREA NITROGEN 16 MG/DL (9-23); CALCIUM LEVEL 7.8 MG/DL (8.5-10.1); CARBON DIOXIDE LEVEL 23 MMOL/L (20-31); CHLORIDE LEVEL 105 MMOL/L (98-107); CREATININE FOR GFR 0.91 MG/DL (0.70-1.30); GLOMERULAR FILTRATION RATE > 90.0 (>60); GLUCOSE, FASTING 160 MG/DL (60-100); POTASSIUM SERUM 3.6 MMOL/L (3.5-5.1); SODIUM LEVEL 139 MMOL/L (136-145)
[2024-10-03] MEDS: INSULIN LISPRO (NovoLOG) PER UNIT SC SCH (08:12)
[2024-10-04 05:22] VITALS: BP 99/68; TEMP 98.1; O2SAT 97
[2024-10-04 05:51] LABS: BASO % 0.4 % (0.0-1.0); EOS # 0.1 10^3/uL (0.0-0.5); EOS % 1.5 % (0.0-3.0); HEMATOCRIT 33.4 % (42.0-52.0); HEMOGLOBIN 10.8 g/dl (13.5-17.5); LYMPH # 1.5 10^3/uL (1.5-5.0); LYMPH % 20.7 % (24.0-44.0); MEAN CORPUSCULAR HEMOGLOBIN 26.8 pg (27.0-33.0); MEAN CORPUSCULAR HGB CONC 32.3 g/dl (32.0-36.5); MEAN CORPUSCULAR VOLUME 82.9 fl (80.0-96.0); MONO % 13.1 % (2.0-8.0); NEUTROPHILS # 4.6 10^3/uL (1.5-8.5); NEUTROPHILS % 63.9 % (36.0-66.0); PLATELET COUNT, AUTOMATED 192 10^3/uL (150-450); RED BLOOD COUNT 4.03 10^6/uL (4.30-6.10); WHITE BLOOD COUNT 7.2 10^3/uL (4.0-10.0)
[2024-10-04 06:14] LABS: BLOOD UREA NITROGEN 10 MG/DL (9-23); CALCIUM LEVEL 8.4 MG/DL (8.5-10.1); CARBON DIOXIDE LEVEL 24 MMOL/L (20-31); CHLORIDE LEVEL 108 MMOL/L (98-107); CREATININE FOR GFR 0.74 MG/DL (0.70-1.30); GLOMERULAR FILTRATION RATE > 90.0 (>60); GLUCOSE, FASTING 154 MG/DL (60-100); POTASSIUM SERUM 3.5 MMOL/L (3.5-5.1); SODIUM LEVEL 143 MMOL/L (136-145)
[2024-10-04 06:28] LABS: C REACTIVE PROTEIN QUANTITATIV 17.82 MG/DL (<1.0)
[2024-10-04] MEDS ORDERED: LEVO1TAB40 PO (10:13)
[2024-10-04 12:00] VITALS: BP 112/68; TEMP 97.8; O2SAT 97
== END 2024-10-04 13:45 | disposition home or self-care (01) | DRG 720 ==
LOC: M ED 13:13 → M ED INP 18:14 → M MS5PR 21:07
PROVIDERS: ADMIT Internal Medicine; ATTEND Student in an Organized Health Care Education/Training Program
DX: A41.9 Sepsis, unspecified organism (principal); E87.1 Hypo-osmolality and hyponatremia; N10 Acute pyelonephritis; N39.0 Urinary tract infection, site not specified; E87.6 Hypokalemia; E11.9 Type 2 diabetes mellitus without complications; Q54.8 Other hypospadias; N20.0 Calculus of kidney; N35.911 Unspecified urethral stricture, male, meatal; Z79.899 Other long term (current) drug therapy; Z88.5 Allergy status to narcotic agent; B95.8 Unspecified staphylococcus as the cause of diseases classified elsewhere

== ENCOUNTER → 2024-10-31 | Outpatient (CLI) | payer BC ==
[~2024-10-31] MED LIST changes: +ACET-897 PO; -FLOM0.4C39 PO; +LEVO1TAB40 PO; +TAMS-18 PO
[2024-10-31 17:39] LABS: HEMATOCRIT 41.1 % (42.0-52.0); HEMOGLOBIN 13.2 g/dl (13.5-17.5); MEAN CORPUSCULAR HEMOGLOBIN 27.3 pg (27.0-33.0); MEAN CORPUSCULAR HGB CONC 32.1 g/dl (32.0-36.5); MEAN CORPUSCULAR VOLUME 85.1 fl (80.0-96.0); PLATELET COUNT, AUTOMATED 313 10^3/uL (150-450); RED BLOOD COUNT 4.83 10^6/uL (4.30-6.10); WHITE BLOOD COUNT 7.1 10^3/uL (4.0-10.0)
[2024-10-31 18:17] LABS: ALBUMIN 3.9 G/DL (3.2-5.2); ALKALINE PHOSPHATASE 104 U/L (40-129); ALT/SGPT 18 U/L (7.0-40); AST/SGOT 13 U/L (<34); BILIRUBIN,TOTAL 0.3 MG/DL (0.3-1.2); BLOOD UREA NITROGEN 17 MG/DL (9-23); CALCIUM LEVEL 9.5 MG/DL (8.5-10.1); CARBON DIOXIDE LEVEL 28 MMOL/L (20-31); CHLORIDE LEVEL 107 MMOL/L (98-107); GLOMERULAR FILTRATION RATE > 90.0 (>60); GLUCOSE, FASTING 142 MG/DL (60-100); SODIUM LEVEL 144 MMOL/L (136-145); TOTAL PROTEIN 7.5 G/DL (5.7-8.2)
== END ==
LOC: M LAB 16:37
PROVIDERS: ATTEND Urology
DX: N20.1 Calculus of ureter (principal)

== ENCOUNTER 2024-12-26 11:37 | Emergency (ER) | payer BC ==
[~2024-12-26] VITALS: Ht 175.3 cm; Wt 108.0 kg
[2024-12-26] MEDS ORDERED: CEPH500C (11:46)
[2024-12-26 12:54] LABS: BASO # 0.1 10^3/uL (0.0-0.2); BASO % 0.6 % (0.0-1.0); EOS # 0.1 10^3/uL (0.0-0.5); EOS % 1.6 % (0.0-3.0); LYMPH # 2.6 10^3/uL (1.5-5.0); LYMPH % 31.8 % (24.0-44.0); MONO # 0.6 10^3/uL (0.0-0.8); MONO % 7.9 % (2.0-8.0); NEUTROPHILS # 4.7 10^3/uL (1.5-8.5); NEUTROPHILS % 57.7 % (36.0-66.0); PLATELET COUNT, AUTOMATED 294 10^3/uL (150-450)
[2024-12-26 12:58] LABS: ERYTHROCYTE SEDIMENTATION RATE 47 mm/hr (0-15)
[2024-12-26 13:26] LABS: C REACTIVE PROTEIN QUANTITATIV 2.91 MG/DL (<1.0); CALCIUM LEVEL 9.6 MG/DL (8.5-10.1); CARBON DIOXIDE LEVEL 24 MMOL/L (20-31); CHLORIDE LEVEL 111 MMOL/L (98-107); CREATININE FOR GFR 0.69 MG/DL (0.70-1.30); GLOMERULAR FILTRATION RATE > 90.0 (>60); POTASSIUM SERUM 4.3 MMOL/L (3.5-5.1); SODIUM LEVEL 143 MMOL/L (136-145)
[2024-12-26] MEDS ORDERED: DOXY-441 PO (14:11)
[2024-12-26 14:13] VITALS: BP 128/74; TEMP 96.5; O2SAT 100
== END 2024-12-26 14:30 | disposition home or self-care (01) ==
LOC: M ED 11:37
DX: L03.031 Cellulitis of right toe (principal); L60.0 Ingrowing nail; E11.9 Type 2 diabetes mellitus without complications; Z87.442 Personal history of urinary calculi; Z88.5 Allergy status to narcotic agent; Z90.89 Acquired absence of other organs; Z79.2 Long term (current) use of antibiotics; Z79.4 Long term (current) use of insulin; Z79.899 Other long term (current) drug therapy

== ENCOUNTER → 2025-01-17 | Outpatient (CLI) | payer BC ==
[~2025-01-17] MED LIST changes: +CEPH500C; +DOXY-441 PO
[2025-01-17 11:50] LABS: CALCIUM LEVEL 9.6 MG/DL (8.5-10.1); CARBON DIOXIDE LEVEL 27 MMOL/L (20-31); CHLORIDE LEVEL 105 MMOL/L (98-107); CREATININE FOR GFR 0.82 MG/DL (0.70-1.30); GLOMERULAR FILTRATION RATE > 90.0 (>60); MAGNESIUM LEVEL 2.0 MG/DL (1.8-2.4); PHOSPHORUS LEVEL 3.1 MG/DL (2.5-4.9); POTASSIUM SERUM 4.5 MMOL/L (3.5-5.1); SODIUM LEVEL 145 MMOL/L (136-145)
== END ==
LOC: M LAB 10:04
PROVIDERS: ATTEND Urology
DX: N20.0 Calculus of kidney (principal)